=== PATIENT | female | born 1990 | race African-American/Black ===

== ENCOUNTER 2018-08-16 19:50 | Emergency (ER) | payer MEDICAID ==
[~2018-08-16] VITALS: Ht 165.1 cm; Wt 68.1 kg
[2018-08-16 21:26] VITALS: BP 126/73
== END 2018-08-17 02:12 | disposition left against medical advice (07) ==
LOC: ER 19:50
DX: M54.9 Dorsalgia, unspecified (principal); Z53.21 Procedure and treatment not carried out due to patient leaving prior to being seen by health care provider